=== PATIENT | female | born 1940 | race Caucasian/White ===

== ENCOUNTER → 2019-02-21 | Outpatient (CLI) | payer MEDICARE, OTHER ==
[~2019-02-21] MED LIST: ATOR40TA78 PO; CEFD300C37 PO; CLOP75TA PO; ENAL10TA PO; ENAL10TA71 PO; ENAL20TA PO; ESCI20TA PO; METO-93 PO; METO25TA35 PO; METO50TA82 PO; [UNRECOGNIZED DRUG - REMARK] PO
== END | disposition home or self-care (01) ==
LOC: CFH 02-15 08:51
PROVIDERS: ATTEND Internal Medicine
CPT/HCPCS: 77080